=== PATIENT | male | born 1955 | race Asian ===

== ENCOUNTER 2024-10-30 12:37 | Inpatient (IN) | payer MEDICARE, SELFPAY ==
[2024-10-30] VITALS (12 sets, daily range): BP systolic 114–164; BP diastolic 80–120; BMI 27.4
[2024-10-30] MEDS: LOPRESSOR 5 MG IV (08:05)
[2024-10-30 08:16] LABS: Hematocrit 50.5 % (39.0-52.0); Hemoglobin 18.0 g/dL (13.0-18.0); Mean Corp Hgb Conc. 35.6 g/dL (33.0-37.0); Mean Corpuscular Volume 90.7 fL (80.0-94.0); Nucleated Red Blood Cells % 0 % (-); Platelet Count 219 10^3/uL (130-400); Red Cell Dist. Width 12.3 % (11.5-14.5)
[2024-10-30 08:32] LABS: ALT (SGPT) 51 U/L (0-50); AST (SGOT) 37 U/L (17-59); Albumin 4.5 g/dl (3.5-5.0); Alkaline Phosphatase 72 U/L (38-126); Blood Urea Nitrogen 19 mg/dl (9-20); Calcium 9.5 mg/dl (8.4-10.2); Carbon Dioxide 24 mmol/L (22-30); Chloride 108 mmol/L (98-107); Glucose 173 mg/dl (70-99); Magnesium 1.9 mg/dl (1.6-2.3); Potassium 4.0 mmol/L (3.5-5.1); Sodium 139 mmol/L (135-145); Total Protein 7.3 g/dl (6.3-8.2); eGFR > 60.00
[2024-10-30 08:43] LABS: Troponin I < 0.012 ng/ml
--- NOTE | 2024-10-30 10:30 | ED.GENMED ---
History of Present Illness
General
Chief Complaint: Cardiac Symptoms
Source: patient and spouse
Time Seen by Provider: 10/30/24 07:44
History of Present Illness
History of Present Illness:
Note:
CHIEF COMPLAINT(S)
Palpitations with a confirmed episode of atrial fibrillation as noted on personal monitoring.
HISTORY OF PRESENT ILLNESS
The patient is a male who presents with palpitations and a recent episode of atrial fibrillation noted by their smartwatch. Theyve had at least one instance where their watch alarm indicated an episode, and subsequent assessment by personal
monitoring correlates with this. The patient mentions having intermittent palpitations characterized by premature ventricular contractions (PVCs) occurring every fourth or fifth beat and occasionally premature atrial contractions (PACs). The patient
reports that their heart rate has increased from 97 to 116 beats per minute during the visit. Their recorded blood pressure today is elevated at 163/117 mmHg. The patient denies experiencing chest pain, weight loss, or thyroid-related symptoms like
changes in hair or skin condition. The patient states they have been slightly more short of breath over the last couple of weeks but can still walk. The patient previously had an echocardiogram which showed a slight deviation from normal, pending
further review of the full report.
PAST MEDICAL AND SURIGICAL HISTORY
The patient has a history of high blood pressure and atrial fibrillation. The patient has also had previous stress testing.
CHRONIC MEDICAL CONDITIONS SIGNIFICANTLY AFFECTING CARE
- Hypertension
- Atrial fibrillation
EXTERNAL RECORDS REVIEWED
An echocardiogram was done at another facility, with initial findings shared verbally with the patient. Further records are to be retrieved for comprehensive evaluation.
REVIEW OF SYSTEMS
- Cardiovascular: Palpitations, increased heart rate, no chest pain.
- Respiratory: Slight increase in shortness of breath over the last few weeks.
- General: No weight loss reported.
- Endocrine: No changes in hair or skin condition reported.
PHYSICAL EXAM
General: Alert, no acute distress.
Skin: Warm, dry.
Head: Normocephalic, atraumatic.
Neck: Supple, trachea midline.
Eye Ears, nose, mouth and throat: Oral mucosa moist.
Cardiovascular: Tachycardic with ectopy; frequent PVCs and occasional PACs; appears sinus; no edema.
Respiratory: Respirations are non-labored.
Gastrointestinal: Abdomen nondistended.
Back: Normal range of motion, Normal alignment.
Musculoskeletal: Normal ROM, normal strength.
Neurological: Alert and oriented to person, place, time, and situation, No focal neurological deficit observed.
Psychiatric: Cooperative, appropriate mood & affect.
PROBLEM LIST
Acute:
- Palpitations
- Hypertension
- Recent episode of atrial fibrillation
Chronic:
- Hypertension
- Atrial fibrillation
PLAN
- Monitor the heart rhythm and rate for a few hours.
- Perform laboratory investigations to check electrolyte levels and thyroid function.
- Administer beta-brenda to manage heart rate and blood pressure while awaiting test results.
- Obtain a chest X-ray.
- Trend blood pressure throughout monitoring to assess for decreases.
- Seek results and document from previous echocardiogram.
- Consider further management based on monitoring outcomes and lab results.
DIFFERENTIAL DIAGNOSIS
The Differential Diagnosis includes, in no particular order and is not limited to:
1. Paroxysmal atrial fibrillation
2. Valvular heart disease
3. Electrolyte imbalances
4. Thyroid dysfunction
5. Chronic obstructive pulmonary disease
6. Anxiety-induced palpitations
7. Myocardial ischemia
8. Heart failure
9. Pulmonary hypertension
10. Cardiomyopathy
CARE-UPDATE
10/30/24 - 08:56
The Holter monitor review from March 2024 indicates 5% PACs with 63 episodes of non-sustained SVT, the longest lasting 18 beats at a rate of 141 bpm. No atrial fibrillation or heart block detected.
CARE-UPDATE
10/30/24 - 08:57
Reviewed March 2024 echocardiogram: ejection fraction is 46%. Trace tricuspid regurgitation noted. Pulmonary artery pressure recorded at 24 mmHg, showing mild to moderate regurgitation.
EKG
My independent EKG interpretation is:
- Time of EKG: [Time Not Provided]
- Rhythm: Sinus tachycardia with frequent premature atrial contractions (PACs)
- Heart Rate: 115 bpm
- Newton: Normal
- Notable Intervals: [Not Provided]
- Abnormalities: No significant QRS complex changes detected
Disposition:
SUMMARY OF ENCOUNTER
The patient, a 69-year-old male, presented with palpitations and dyspnea, accompanied by tachycardia and frequent PVCs. A recent outpatient echocardiogram revealed an ejection fraction of 46% with mild to moderate mitral regurgitation. Upon
reassessment, the patient continued to be hypertensive but showed improvement following administration of metoprolol. However, PVCs persisted. Lab tests indicated volume overload with an elevated BNP of 1420 and negative troponin at 0.012. The
complete blood count (CBC) and basic metabolic panel (BMP) were normal. The patient was awake and alert, though his spouse noted he had not been himself recently.
DISPOSITION
Admission for further evaluation and management by cardiology.
ASSESSMENT
Tachycardia with frequent PVCs, volume overload, and possible exacerbation of heart failure given the reduced ejection fraction and mitral regurgitation.
EMERGENCY TREATMENTS ADMINISTERED
Metoprolol for hypertension and tachycardia.
MANAGEMENT OF THE PATIENTS CARE WAS DISCUSSED WITH
Cardiology, who will perform a bedside evaluation to provide further management advice.
REASSESSMENT
The patients hypertension improved after receiving metoprolol, but PVCs continued.
INDEPENDENT REVIEW OF LABS AND INTERPRETATION OF TESTS
- My independent review of BNP is elevated at 1420.
- My independent review of troponin is 0.012, indicating no acute myocardial infarction.
- My independent review of CBC is normal.
- My independent review of BMP is normal.
MEDICATION RECONCILIATION
- Metoprolol was administered to control hypertension and heart rate.
MEDICAL DECISION MAKING
- Number and Complexity of Problems Addressed: Chronic conditions affecting care include hypertension and atrial fibrillation.
Differential Diagnosis: Paroxysmal atrial fibrillation, valvular heart disease, electrolyte imbalances, thyroid dysfunction, chronic obstructive pulmonary disease, anxiety-induced palpitations, myocardial ischemia, heart failure, pulmonary
hypertension, cardiomyopathy.
- Data:
- Category 1: The patient�s recent echocardiogram was reviewed, showing an ejection fraction of 46% with mild to moderate mitral regurgitation.
- Category 2: My independent interpretation of the echocardiogram indicates reduced heart function with possible volume overload.
- Category 3: Management discussion with cardiology regarding the patients care and further evaluation at the bedside.
- Risk: Prescription medication management included metoprolol to control cardiovascular symptoms.
DIAGNOSIS
- Tachycardia with Premature Ventricular Contractions (PVCs) (ICD-10: R00.0)
- Hypertensive heart disease with heart failure (ICD-10: I11.0)
- Heart Failure with Reduced Ejection Fraction (ICD-10: I50.2)
Past History
Past History
ED Past Medical History: Hypercholesterolemia and Other (gout)
Social History
Tobacco: Non-smoker
Phy Exam
Physical Exam
Physical Exam:
.
Course
Orders/Labs/Results
Orders:
Orders
10/30/24 07:30
EKG [Electrocardiogram (*1)] Urgent
Reason for Study: Palpitations
EKG- Treatment ONCE
10/30/24 07:54
Metoprolol [Lopressor] 5 mg IV NOW STA
10/30/24 07:55
CR Chest - 2 Views Urgent
Comment:
Reason For Exam: sob, palpitations
10/30/24 08:05
Complete Blood Count/With Diff Urgent
Comprehensive Metabolic Panel Urgent
Magnesium Urgent
NT-proBNP Urgent
Comment: ADD ON
TSH Reflex To Free T4 Urgent
Troponin I Urgent
10/30/24 08:50
Metoprolol [Lopressor] 5 mg IV NOW STA
10/30/24 08:51
Add On- LAB Urgent
Tests Added?: BNP
10/30/24 11:11
Furosemide [Lasix] 20 mg IV NOW STA
10/30/24 12:13
Admit/Transfer Patient As Directed
Co-Sign Provider:
Level of Care: Inpatient admission
Assign to:: Telemetry
Physician / Group: hospitalist
Diagnosis: severe hypertention, arrhythmia
Reason for Telemetry: Arrhythmia
Date to Stop Telemetry: 11/02/24
Time to Stop Telemetry: 11:00
Reason for Hospitalization: severe hypertension, arrhythmia
Expected length of stay greater than two midnights?: Yes
ELOS- Estimated Length of Stay in days: 3
I certify the patient meets the requirements for IP care: Yes
PRN Pain Medication Management As Directed
May give lesser potent ordered pain med per pt: Yes
preference::
Protocol:: Medication orders for pain may be administered in a
manner that supports deferring to patient preference
when the pt is:
- Requesting an ordered lesser potent pain medication.
Least to most potent pain medications are defined
as: acetaminophen < NSAID < tramadol < opioids
(morphine, oxycodone, hydromorphone).
- Requesting a lesser dose of the same medication IF
ORDERED.
- Requesting a less intrusive route of administration
if both routes are prescribed by the provider (PO <
IV).
10/30/24 12:15
Code Status As Directed
Resuscitation Status: Full Code
10/30/24 14:07
Activity As Directed
Activity Level: With Assistance
Notify MD As Directed
Notify physician if: Bridge Admission orders placed.
Notify attending physician:
-- upon arrival to unit
OR
-- when patient is identified as an ED hold
Vital Signs As Directed
Frequency: Per unit guidelines
O2 Therapy [RESP] Routine
Titrate/Wean O2 to maintain O2 sat greater than (%): 92
DX Deep Vein Thrombosis Video Routine
10/30/24 18:00
Enoxaparin Sodium [Lovenox] 40 mg SC QPM
11/02/24 11:00
DC Protocol for Telemetry ONCE
Abnormal Lab Results
10/30/24
08:05
MCH 32.3 H pg
(27.0-31.0)
Chloride 108 H mmol/L
(98-107)
Glucose 173 H mg/dl
(70-99)
ALT 51 H U/L
(0-50)
10/30/24 08:05
10/30/24 08:05
Vital Signs
Initial and Last Documented VS:
Initial Vital Signs
Temp Pulse Resp BP Pulse Ox
99.0 F 117 18 164/120 97
10/30/24 07:31 10/30/24 07:31 10/30/24 07:31 10/30/24 07:31 10/30/24 07:31
Last Documented Vital Signs
Temp Pulse Resp BP Pulse Ox
97.5 F 56 16 156/87 95
10/30/24 14:10 10/30/24 14:10 10/30/24 14:10 10/30/24 14:10 10/30/24 14:10
*Pulse Oximetry
SaO2: 96
Oxygen Mode of Delivery: Room air
Patient hypoxic: no
*Critical Care Note
Total Time (30-74mins, 75-104mins- exclusive of procedures): Not Applicable
ED Attending Note
-
Portions of this chart may have been created with voice recognition software.� Occasional wrong word or��sound alike� substitutions may have occurred due to the inherent limitations of voice recognition software.
Discharge Plan
Departure
Patient Disposition: Admit
Date of Disposition: 10/30/24
Time of Disposition: 11:11
Admit to: Telemetry
Presentation/result/management discussed w/ accepting MD/DO: Hospitalist
Discharge Problem:
Acute dyspnea, Volume overload, Tachycardia, Frequent PVCs
Interventions
Interventions:
*Risk Screen - Suicide Last Done: 10/30/24 07:33
*General Assessment Last Done: 10/30/24 07:33
*Neglect/Abuse Screening Last Done: 10/30/24 07:33
*ED COVID-19 Vaccine History Last Done: 10/30/24 07:33
*Nursing Disposition Last Done: 10/30/24 13:55
Discharge Date and Time
Discharge Date/Time: 10/30/24 13:55
[2024-10-30] MEDS: LASIX 20 MG IV (12:08)
--- NOTE | 2024-10-30 12:09 | W.PN.UPDATE ---
Update Note
Progress Note Update
69 male history of gout hyperlipidemia presented with 3-week history of palpitations that has been progressively getting worse now associated with shortness of breath. States approximately 3 to 4 months ago while at the gym and had a syncopal
episode. Had 2D echocardiogram, states EF on the lower end, mitral regurgitation, Holter monitor completed without acute findings apart from PACs PVCs. Has an Apple watch that picked up potential atrial fibrillation this morning. EKG in the ED
demonstrated sinus tachycardia with PVCs. Troponin negative. BNP 1400. Chest x-ray with some pulmonary edema.
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
NAD
Scleral Anicteric
MMM
No JVD
Right lower lobe crackles worse on left
RR but tachycardic, S1/S2
Soft, NT, ND, BS+
Warm, Dry
AAOx3
Calm
?New onset heart failure with elevated BNP pulmonary edema on chest x-ray
IV diuretics
Obtain 2D echocardiogram from [facility] records
Monitor urinary output
Monitor on telemetry
Follow-up cardiology recommendations
Tachycardia
Check TSH
Monitor on telemetry
Cards recommendations
Beta-blockade
Because of the syncopal history would check CT PE study. Though low clinical suspicion has O2 sats ranging from 94 to 96% likely likely related to pulmonary edema rather than PE and no unilateral leg swelling
Gout
Allopurinol
Hyperlipidemia
Statin
--- NOTE | 2024-10-30 12:54 | HPS.HSE ---
Family Physician
-
Family Physician: Dr. Metz
Chief Complaint
-
Fatigue, shortness of breath and palpitations
History of Present Illness
A 69 y/o male with PMH of Hyperlipidemia, gout, BPH presented to ED with shortness of breath, fatigue and palpitations. Yesterday, while he was resting at home he had SOB, palpitations and checked his iwatch and had an alert for atrial fibrillation.
He did not have any chest pain, lightheaded, weakness or nausea. 2months ago while he was weight lifting at the gym he had an episode of syncope. It was so sudden he did not have a feeling of fainting. He gained his conciousness within seconds then
went home. About 3 weeks ago he started to feel palpitations, SOB more frequently and his smart watch would show HR 100-110 while resting. Usually he does not get tired easily but recently he started take naps to feel rested. He feels SOB from
walking upstairs or walking blocks which is very new for him. Even during SOB he usually can keep walking. He does not need to sit/rest. He denies chest pain, dizziness recent weight loss.
He followed up with PCP and Holter, Echo was done. He has a scheduled appt with [facility] supervisor at the end of November.
Medical History
Past Medical History
Past Medical History: Reports HTN and Hypercholesterolemia
Additional Past Medical History:
BPH
Gout
Past Surgical History: Reports None
Social History
Tobacco: Other (cigar once a week)
Alcohol: None
Drug: None
Personal:
Living: With Family
Family History
Family History: CAD
Allergies / Home Medications
Allergies reflects when Allergies were last updated in [employer].
Home Medications with original date entered in [employer]
Allergy/Medication List:
Allergies
Allergy/AdvReac Type Severity Reaction Status Date / Time
cephalexin monohydrate (From Allergy Rash Verified 10/30/24 07:32
Keflex)
Home Medications
aspirin 81 mg tablet,delayed release 81 mg PO DAILY 05/02/12
allopurinol 300 mg tablet 300 mg PO DAILY 10/30/24
atorvastatin 20 mg tablet (Lipitor) 20 mg PO DAILY 10/30/24
ezetimibe 10 mg tablet (Zetia) 10 mg PO DAILY 10/30/24
finasteride 5 mg tablet 5 mg PO DAILY 10/30/24
saw palm 160 mg-vit E 100 unit-selen 100 jrd-cjzs-bagzro-pygeum tablet (Prostate Health) 1 tab PO HS 10/30/24
saw palm 160 mg-vit E 100 unit-selen 100 pjt-likr-nklmjv-pygeum tablet (Prostate Health) 2 tab PO DAILY 10/30/24
therapeutic multivitamin 1 tab PO DAILY 10/30/24
Review of Systems
-
History Source: Patient
Constitutional: Reports Fatigue
EENT: Reports No Symptoms
Respiratory: Reports Trouble Breathing
Cardiac: Reports Palpitations
Abdomen/GI: Reports No Symptoms
: Reports Frequency
Musculoskeletal: Reports No Symptoms
Skin: Reports No Symptoms
Neurological: Reports No Symptoms
Endocrine: Reports No Symptoms
Hematologic/Lymphatic: Reports No Symptoms
Physical Exam
Vital Signs
Vital Signs
Temp Pulse Resp BP Pulse Ox
99.0 F 108 17 140/108 96
10/30/24 07:31 10/30/24 08:17 10/30/24 08:00 10/30/24 08:17 10/30/24 10:31
Physical Exam
General: Well Developed, Well Nourished, No Apparent Distress, Comfortable and Conversant
HEENT: NormoCephalic, Moist mucous membranes and Atraumatic
Respiratory: Crackles
Cardiac: S1/S2, Irregular Rhythm, Tachycardia and Murmur
Breast: Deferred by me
GI: Soft, Non Tender and Non Distended
Rectal: Deferred by Provider
Genito-urinary: Deferred by me
Musculoskeletal: No Clubbing, No Cyanosis and No Edema
Skin: Warm
Neuro: AO x 3, No Motor Deficits and No Sensory Deficits
Psych: Calm
Laboratory Results
-
10/30/24 08:05
10/30/24 08:05
Laboratory Results
Total Bilirubin 0.8 mg/dl (0.2-1.3) 10/30/24 08:05
AST 37 U/L (17-59) 10/30/24 08:05
ALT 51 U/L (0-50) H 10/30/24 08:05
Alkaline Phosphatase 72 U/L (38-126) 10/30/24 08:05
Troponin I < 0.012 ng/ml 10/30/24 08:05
Impression/Plan
-
IMPRESSION:
A 69 y/o male with PMH of Hyperlipidemia, gout, BPH presented to ED with shortness of breath, fatigue, palpitations with elevated HR on his iwatch. IT started 2 weeks ago with syncope at the gym. Last 3 weeks he has been feeling more fatigue, SOB,
palpitations and receiing afib alerts on his iwatch.
PLAN:
#Pulmonary congestion, elevated BNP, Possible new onset heart failure
- No history of HF
- Obtain recent Echo records from [facility]
- Move to IVU
- Consult Cardiology
- Monitor JOSIAH
- Watch daily weights
- Continue IV Lasix
- Follow cardiology recs
#Tachycardia
- ECG - Sinus tachycardia with frequent premature ventricular complexes
- Start Metoprolol 12.5 BID
- Check TSH
#Hypertension
- Continue Metoprolol
- IV lasix
#?? Pulmonary Emboli
- Pt with SOB, hx of syncope and tachycardia
- Check CT Pulmonary embolism
- Monitor Vitals and Oxygen
#?? Myocardial ischemia
- Pt with SOB, hx of syncope, tachycardia denies chest pain
- Check troponin- Normal
- ECG- no ST elevations
#Hyperlipidemia
-Continue Atorvastatin, Ezetimibe
#Gout
-Allopurinol
#BPH
-Continue Finasteride
Full Code
DVT prophylaxis: Levonox
--- NOTE | 2024-10-30 13:25 | CM ---
janitorial manager reviewed patient's chart and met with patient and spouse at bedside, patient is a Psychiatrist, is independent with adl's and ambulation, no dme patient drives, patient's home is multilevel. Plan is to home with spouse no needs when
stable.
PCP: Ernie?
Pharmacy: [facility].
[2024-10-30] MEDS: PROSCAR PO (14:28)
[2024-10-30] MEDS: ZETIA PO (14:28)
[2024-10-30] MEDS: ASPIR LOW (ENTERIC COATED) PO (14:28)
[2024-10-30] MEDS: LIPITOR PO (14:28)
[2024-10-30] MEDS: ZYLOPRIM PO (14:29)
--- NOTE | 2024-10-30 15:06 | PTCARENOTE ---
Pt was received from ED at 1410. Pt ambulated to the room. Denies SOB during this short walk. Sinus tach with PVCs noted on fly worker. Heart rate 110-115 at rest, 130s on ambulation. Care plan reviewed. at the bedside.
[2024-10-30] MEDS: TOPROL XL 25 MG PO (15:22)
--- NOTE | 2024-10-30 16:37 | CON.CAR ---
Addendum entered and electronically signed by Deirdre Simpson DO 10/31/24 15:31:
I saw and examined the patient.
The Exploration Geologist's note was reviewed and I agree with the note.
Comment: Seen and examined this morning with at bedside. Overall he feels better with less shortness of breath. No chest pain.
General: No acute distress, AAOX3
Neck: Negative JVD
Heart: Regular, positive S1/S2, 1/6 SM
Lungs: CTA b/l, negative wheezes/rales/rhonchi
Abd: Positive BS, NT/ND, neg rebound/rigidity/guarding
Ext: no edema
Neuro: nonfocal
Plan:
Acute heart failure with reduced ejection fraction, unclear etiology
- Echocardiogram reviewed on patient's portal with from echo 03/2024: EF 46%, grade 1 diastolic dysfunction and reduced strain with mild to moderate MR.
-Echocardiogram today EF 15-20% with strain reduced at -8.5%. Moderate mitral regurgitation and normal RV size and systolic function. Low-flow/low gradients across the aortic valve which looks at least carotic if not mildly stenotic.
- proBNP 1420. Troponin undetectable. TSH within normal limits
-CTA chest PE study with no pulmonary embolism. No thoracic aortic aneurysm. Mild calcifications of the thoracic aorta and coronary calcifications. No suspicious pulmonary nodules or bronchiectasis. No mediastinal/hilar or axillary
lymphadenopathy.
-Plan for right/left heart catheterization today
-If no significant coronary artery disease on cardiac catheterization we will pursue evaluation for nonischemic causes of cardiomyopathy. Will likely need a cardiac MRI.
- Will start to optimize goal-directed medical therapy for cardiomyopathy following cardiac catheterization: Carvedilol, Entresto, SGLT2 inhibitor
-Continue to monitor on telemetry
-Given patient's history of syncope several months ago, I have recommended LifeVest at time of discharge.
Frequent PACs/PVCs and sinus tachycardia
- No atrial fibrillation documented on telemetry
- Recent Holter monitor in October with no documented atrial fibrillation
- TSH within normal limits
History of prediabetes�repeat hemoglobin A1c
-Will initiate SGLT2 inhibitor this admission
Original Note:
Consultation
Consultation Request
Date/Time Consultation Requested: 10/30/24
Date/Time Consultation Performed: 10/30/24
Requesting Provider: Dr. Rice
Performing Provider: Dr. Simpson
Reason for Consultation: Shortness of breath and palpitation
Medical History
-
Chief Complaint: Shortness of breath and palpitation
History of Present Illness:
I had the pleasure to meet Dr. Alok Chaudhry along with his Hina for evaluation of at least 3 weeks of shortness of breath, palpitations and fatigue. 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
prediabetes, BPH and a remote history of gout. He has no history of hypertension, coronary artery disease, cardiomyopathy, cardiac arrhythmia, thromboembolic disease, or thyroid disease. He occasionally smokes cigars but does not smoke cigarettes.
Several months ago while working with a system integration engineer at the gym lifting weights he passed out. He did not seek immediate medical attention but did have testing through his primary care physician including a 48-hour Holter and a 2D echocardiogram.
Study results were reviewed on patient's portal: 40 aorta Holter October 30, 2024 showed sinus rhythm with PAC burden 4.9% and frequent brief runs of PAT without documented atrial fibrillation. PVC burden 4.4% with no runs of NSVT. No
significant bradycardia arrhythmia. His echocardiogram reported LV ejection fraction 46% with grade 1 diastolic dysfunction and abnormal strain, -10.3%. Normal RV size and systolic function with TAPSE 2 cm. Mild to moderate mitral regurgitation
with no reported MVP. Aortic sclerosis with no aortic regurgitation. No significant tricuspid regurgitation and estimated pulmonary artery pressure is normal at 24 mmHg. There was no reported pericardial effusion. He has not returned to regular
exercise but is active with walking. He denies any further syncopal events. In the last 3 weeks he has noted a gradual worsening of increasing fatigue, palpitations and shortness of breath. On presentation to the ED he states his Apple Watch has
had A-fib alerts. He denies chest pain or pressure. He denies lower extremity edema. Although he was not immediately aware, he now admits that his abdomen may have felt a little distended. Family history was reviewed: Father has a history of
coronary artery disease and bypass surgery. Mom is relatively healthy. He has a brother with a history of stroke in his 50s but no documented atrial fibrillation. His children are healthy.
.
In the ER he was found to be hypertensive with sinus rhythm/sinus tachycardia and frequent PVCs. Cardiac troponin undetectable. TSH is normal. BUN/creatinine normal. Hemoglobin normal. proBNP 1420. Chest x-ray clear. There is an order for CTA
of the chest by primary not yet completed. Twelve-lead EKG sinus tachycardia with frequent PVCs and nonspecific ST-T wave abnormality. He received a dose of IV Lasix in the emergency room as well as IV Lopressor with improved shortness of breath.
.
He has an upcoming cardiology consult appointment in our office in November.
Past medical history:
Hyperlipidemia, prediabetes, gout, BPH
Past Medical History
Past Medical History: Other (See HPI)
Past Surgical History: None
Social History
Tobacco: Other (No cigarette use. Occasional cigars)
Alcohol: None
Drug: None
Personal:
Living: With Family
Employment: Employed (Practicing psychiatrist)
Family History
Family History: CAD (Father with a history of coronary artery disease and bypass) and Other (Brother with a history of stroke. No family history of atrial fibrillation)
Allergies / Home Medications
Allergy/AdvReac Type Severity Reaction Status Date / Time
cephalexin monohydrate (From Allergy Rash Verified 10/30/24 07:32
Keflex)
�Medication �Instructions �Recorded �Confirmed �Type
aspirin 81 mg tablet,delayed 81 mg PO DAILY 05/02/12 10/30/24 History
release
allopurinol 300 mg tablet 300 mg PO DAILY 10/30/24 10/30/24 History
atorvastatin 20 mg tablet (Lipitor) 20 mg PO DAILY 10/30/24 10/30/24 History
ezetimibe 10 mg tablet (Zetia) 10 mg PO DAILY 10/30/24 10/30/24 History
finasteride 5 mg tablet 5 mg PO DAILY 10/30/24 10/30/24 History
saw palm 160 mg-vit E 100 1 tab PO HS 10/30/24 10/30/24 History
unit-selen 100
ptc-bznk-wjccuo-pygeum tablet
(Prostate Health)
saw palm 160 mg-vit E 100 2 tab PO DAILY 10/30/24 10/30/24 History
unit-selen 100
myz-szik-bhkvhk-pygeum tablet
(Prostate Health)
therapeutic multivitamin 1 tab PO DAILY 10/30/24 10/30/24 History
Review of Systems
-
History Source: Patient
All other systems: Negative unless noted
Constitutional: Fatigue
EENT: No Symptoms
Respiratory: Trouble Breathing
Cardiac: Palpitations and Syncope
Abdomen/GI: No Symptoms
: No Symptoms
Musculoskeletal: No Symptoms
Skin: No Symptoms
Neurological: No Symptoms
Endocrine: No Symptoms
Hematologic/Lymphatic: No Symptoms
Physical Exam
Vital Signs
Temp Pulse Resp BP Pulse Ox
98.1 F 66 18 131/86 96
10/30/24 15:45 10/30/24 15:45 10/30/24 15:45 10/30/24 15:45 10/30/24 15:45
Lab Results
10/30/24 08:05
10/30/24 08:05
Troponin I < 0.012 ng/ml 10/30/24 08:05
Ypy-B-Qcnhprkzxvk Pept 1420 pg/ml 10/30/24 08:05
Physical Exam
General: Well Developed, Well Nourished, No Apparent Distress and Comfortable
HEENT: Normocephalic, Anicteric and Moist Mucous Membranes
Respiratory: Clear and Non Labored Respirations; Negative Wheezes, Crackles or Rhonchi
Cardiac: Other (Irregular with ectopy on telemetry. Tachycardic. Positive S1-S2. No murmurs auscultated)
Musculoskeletal: No Edema (Trace pedal edema)
Neuro: AO x 3 and Nonfocal/Grossly Intact
Psych: Calm
Impression / Plan
-
Initial consult: Dr. Simpson
Impression:
Shortness of breath/elevated proBNP with history of mildly reduced LV systolic function on recent outside hospital echocardiogram and diastolic dysfunction consistent with heart failure with reduced ejection fraction
Frequent PACs and PVCs
Sinus tachycardia
Hypertension, new diagnosis
Hyperlipidemia. Lipid profile 01/06/2024: Total cholesterol 162, HDL 58, triglycerides 167, LDL 77
History of syncope
Prediabetes with hemoglobin A1c 6.2% January 21, 2024
History of gout
Plan:
Acute heart failure with mildly reduced LV systolic function
- Echocardiogram reviewed on patient's portal with EF 46%, grade 1 diastolic dysfunction and reduced strain with mild to moderate MR.
- proBNP 1420
-Will repeat echocardiogram with strain tomorrow.
- Pending echo findings, he will need further ischemic evaluation likely as an outpatient with a Lexiscan PET/CT stress test. Troponin undetectable.
- Continue IV Lasix with likely transition to oral Lasix tomorrow
- Start metoprolol succinate 25 mg daily and monitor blood pressure/heart rate and telemetry trend
- Pending confirmation of ejection fraction; will start goal-directed medical therapy
-CTA ordered�pending.
Frequent PACs/PVCs and sinus tachycardia
- No atrial fibrillation documented on telemetry
- Recent Holter monitor in October with no documented atrial fibrillation
- Start beta-brenda
- TSH within normal limits
Hypertension, new diagnosis on admission
- Monitor blood pressure with new Toprol XL and Lasix
- Pending echo findings consider addition of ARB or Entresto
- Goal normotension
History of prediabetes�repeat hemoglobin A1c
- Most likely will start Jardiance given heart failure presentation
Data Reviewed
-
EKG: Tracing Personally Visualized and interpreted
Radiology: Report Reviewed by me
Medical Tests (Nuc Med, Echo etc): Report Reviewed by me
Labs: Labs Reviewed by me
Old Records: Reviewed
[2024-10-30] MEDS: LOVENOX 40 MG SC (16:53)
--- NOTE | 2024-10-30 23:33 | PTCARENOTE ---
received patient from . AAOx3. independent. states feeling much better this evening. denies shortness of breath at this time. mild palpitations. HR 90s-100s with frequent PVCs and PACs. bp 135/92. denies any pain. reviewed plan of care with
patient and verbalized understanding. urinal provided for I/Os. call upton within reach. makes needs known.
[2024-10-31] VITALS (19 sets, daily range): BP systolic 102–129; BP diastolic 62–106; BMI 27.0
[2024-10-31 04:35] LABS: Hematocrit 51.2 % (39.0-52.0); Hemoglobin 18.0 g/dL (13.0-18.0); Mean Corp Hgb Conc. 35.2 g/dL (33.0-37.0); Mean Corpuscular Volume 91.8 fL (80.0-94.0); Platelet Count 237 10^3/uL (130-400); Red Cell Dist. Width 12.5 % (11.5-14.5)
[2024-10-31 04:56] LABS: Blood Urea Nitrogen 22 mg/dl (9-20); Calcium 9.6 mg/dl (8.4-10.2); Carbon Dioxide 24 mmol/L (22-30); Chloride 107 mmol/L (98-107); Estimated Creatinine Clearance 50 ml/min; Glucose 109 mg/dl (70-99); Magnesium 2.2 mg/dl (1.6-2.3); Potassium 4.2 mmol/L (3.5-5.1); Sodium 140 mmol/L (135-145); eGFR > 60.00
[2024-10-31] MEDS: ASPIR LOW (ENTERIC COATED) 81 MG PO (07:48)
[2024-10-31] MEDS: ZETIA 10 MG PO (07:48)
[2024-10-31] MEDS: ZYLOPRIM 300 MG PO (07:48)
[2024-10-31] MEDS: PROSCAR 5 MG PO (07:49)
[2024-10-31] MEDS: LIPITOR 20 MG PO (07:49)
[2024-10-31] MEDS: TOPROL XL 25 MG PO ×2 (07:49→13:13)
[2024-10-31] MEDS: LASIX 20 MG IV (07:50)
[2024-10-31 09:56] LABS: Glycohemoglobin (HgbA1c) 5.7 % (4.0-5.6)
--- NOTE | 2024-10-31 10:07 | W.PN.HOSP.TC ---
Today's Communication/Plan
-
Increase Metoprolol Succinate to 50mg PO QD
Continue IV lasix today
Follow cards recs
Assessment / Plan
Assessment / Plan
Assessment
A 69 y/o male with PMH of Hyperlipidemia, gout, BPH presented to ED with shortness of breath, fatigue, palpitations with elevated HR on his iwatch. IT started 2 weeks ago with syncope at the gym. Last 3 weeks he has been feeling more fatigue, SOB,
palpitations and receiing afib alerts on his smart watch.
Plan
#Pulmonary congestion, elevated BNP, Possible new onset heart failure
- No history of HF
- Obtain recent Echo records from [place]--> Echocardiogram reviewed on patient's portal with EF 46%, grade 1 diastolic dysfunction and reduced strain with mild to moderate MR.
- Move to IVU
- Consult Cardiology
- Monitor JOSIAH
- Watch daily weights
- Continue IV Lasix 20mg today he still has crackles on his lungs-- likely transition to oral Lasix tomorrow
Follow cardiology recs
-- repeat echocardiogram with strain tomorrow
-- need further ischemic evaluation likely as an outpatient with a Lexiscan PET/CT stress test
-- will start goal-directed medical therapy
#Tachycardia
- ECG - Sinus tachycardia with frequent premature ventricular complexes
- Recent Holter monitor in October with no documented atrial fibrillation
- Add another dose of Metoprolol Succinate 25mg today-- Tomorrow continue with 50mg BID
- Check TSH-- normal
#Hypertension
- Continue Metoprolol
- IV lasix
#Prediabetes
- Hemoglobin A1C 5.7%
#?? Pulmonary Emboli
- Pt with SOB, hx of syncope and tachycardia
- Obtain Chest CTA--> No evidence of pulmonary embolism.
- Monitor Vitals and Oxygen
#?? Myocardial ischemia
- Pt with SOB, hx of syncope, tachycardia denies chest pain
- Check troponin- Normal
- ECG- no ST elevations
#Hyperlipidemia
-Continue Atorvastatin, Ezetimibe
#Gout
-Allopurinol
#BPH
-Continue Finasteride
Full Code
DVT prophylaxis: Levonox
Anticipated Discharge: 24 - 48 hours
Subjective/Interval History
-
Date of Service: October 31, 2024
He has a SOB with exercising but it is improving. Denies SOB while resting. Overnight he had some palpitations without SOB. Denies Chest pain. Overall he is feeling better.
Objective Data
-
Labs:
Laboratory Results
10/31/24
03:45
WBC 6.0
Hgb 18.0
Hct 51.2
Plt Count 237
Sodium 140
Potassium 4.2
Chloride 107
Carbon Dioxide 24
BUN 22 H
Creatinine 1.1
Glucose 109 H
Calcium 9.6
Vital Signs:
Vital Signs
Temp Pulse Resp BP Pulse Ox
97.4 F 97 15 129/106 99
10/31/24 07:21 10/31/24 07:49 10/31/24 07:21 10/31/24 07:49 10/31/24 07:21
I&O
10/30/24 10/31/24 11/01/24
06:59 06:59 06:59
Intake Total 480 / 480
Balance 480 / 480
Review of Systems
-
History Source: Patient
Constitutional: Reports No Symptoms
EENT: Reports No Symptoms Reported
Respiratory: Reports Trouble Breathing
Cardiac: Reports Palpitations
Abdomen/GI: Reports No Symptoms
Breast: Reports No Symptoms
Genitourinary: Reports No Symptoms
Musculoskeletal: Reports No Symptoms
Skin: Reports No Symptoms
Neuro: Reports No Symptoms
Endocrine: Reports No Symptoms
Hematologic / Lymphatic: Reports No Symptoms
Physical Exam
-
General: Well Developed, Well Nourished, No Apparent Distress, Comfortable and Conversant
HEENT: Normocephalic, Atraumatic and Moist Mucous Membranes
Respiratory: Crackles
Cardiac: Regular Rhythm, S1/S2 and Murmur
Breast: Deferred by me
GI: Soft, Nontender, Nondistended and Normal Bowel Sounds
Rectal: Deferred by Provider
Genito-urinary: Deferred by me
Musculoskeletal: No Clubbing, No Cyanosis, No Edema and Normal Gait & Station
Skin: Warm and Dry
Neuro: AO x 3
Hematologic / Lymphatic: No Lymphadenopathy
Psych: Calm
--- NOTE | 2024-10-31 11:51 | W.PN.CARDCBS ---
Today's Communication / Plan
-
[facility] today
Impression / Plan
-
Initial consult: Dr. Simpson
Impression:
Shortness of breath/elevated proBNP with history of mildly reduced LV systolic function on recent outside hospital echocardiogram and diastolic dysfunction consistent with heart failure with reduced ejection fraction
Frequent PACs and PVCs
Sinus tachycardia
Hypertension, new diagnosis
Hyperlipidemia. Lipid profile 01/06/2024: Total cholesterol 162, HDL 58, triglycerides 167, LDL 77
History of syncope
Prediabetes with hemoglobin A1c 6.2% January 21, 2024
History of gout
Plan:
Acute heart failure w/ reduced LV systolic function
- Echocardiogram reviewed on patient's portal with EF 46%, grade 1 diastolic dysfunction and reduced strain with mild to moderate MR.
- proBNP 1420
-Echocardiogram with strain 10/31/2024: EF 15-20%
- will proceed with ischemic evaluation [facility] today. Troponin undetectable.
- Continue IV Lasix
- Started metoprolol succinate 25 mg daily 10/30/2024 and monitor blood pressure/heart rate and telemetry trend
-start GDMT
-CTA chest no PE
Frequent PACs/PVCs and sinus tachycardia
-Telemetry personally reviewed: Normal sinus rhythm, PVCs, PACs
- Recent Holter monitor in October with no documented atrial fibrillation, in process of obtaining report from [facility] cardiology
- Started beta-brenda
- TSH 1.28 within normal limits
Hypertension, new diagnosis on admission
- Monitor blood pressure with new Toprol XL and Lasix
- Pending echo findings consider addition of ARB or Entresto
- Goal normotension
History of prediabetes�hemoglobin A1c 5.7
- will start Jardiance given heart failure presentation
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
Subjective
Date of Service: October 31, 2024
Objective
Labs:
10/31/24 03:45
10/31/24 03:45
Labs
Hgb 18.0 g/dL (13.0-18.0) 10/31/24 03:45
Hct 51.2 % (39.0-52.0) 10/31/24 03:45
Plt Count 237 10^3/uL (130-400) 10/31/24 03:45
Sodium 140 mmol/L (135-145) 10/31/24 03:45
Potassium 4.2 mmol/L (3.5-5.1) 10/31/24 03:45
BUN 22 mg/dl (9-20) H 10/31/24 03:45
Creatinine 1.1 mg/dL (0.7-1.3) 10/31/24 03:45
Glucose 109 mg/dl (70-99) H 10/31/24 03:45
Troponins
10/30/24
08:05
Troponin I < 0.012
Vital Signs and I&O:
Vital Signs
Temp Pulse Resp BP Pulse Ox
97.6 F 57 14 129/106 96
10/31/24 11:05 10/31/24 11:05 10/31/24 11:05 10/31/24 07:49 10/31/24 11:05
Vital Signs
Temp Pulse Resp BP Pulse Ox
97.6 F 57 14 129/106 96
10/31/24 11:05 10/31/24 11:05 10/31/24 11:05 10/31/24 07:49 10/31/24 11:05
Intake & Output
10/29/24 10/30/24 10/31/24 11/01/24
06:59 06:59 06:59 06:59
Intake Total 480 / 480 240 / 240
Output Total 750 / 750
Balance 480 / 480 -510 / -510
[2024-10-31 15:23] LABS: ACT-LR - POC 318 Seconds (116-155)
--- NOTE | 2024-10-31 15:52 | ITS.CL.CATH ---
Senior Unix Administrator - Catheterization
Cardiac Catheterization
Procedure Report:
RIGHT AND LEFT HEART STUDY
Date of Procedure: October 31, 2024
Referring: Dr. Deirdre Simpson
PROCEDURES:
1. Right heart catheterization
2. Left heart catheterization with coronary and single-plane left ventriculography
3. Hemodynamic assessment of the distal RCA using a [place] Verrata wire with the iFR serially measuring above the ischemic threshold
INDICATION: This is a a 69-year-old gentleman with known mild LV dysfunction who was admitted to [facility] following the subacute onset of palpitations, fatigue, and increased shortness of breath over the preceding 3 weeks. He did have an
echocardiogram about 8 months ago notable for mildly reduced LVEF. The echocardiogram was repeated with an estimated ejection fraction of 15 to 20%. He is now referred for coronary angiography.
ACCESS: Right radial artery, 6 [place] sheath and right brachial vein, 5 [place] sheath
HEMODYNAMICS : mmHg
RA (m) : 5
RV (s/d) : 31/5, 9
PA (s/d, m) : 32/19, 25
PCWP (m) : 22
AO (s/d, m) : 127/87, 103
LV (s/d) : 131/18
LVEDP : 35
Estimated Ines Cardiac Output: 3.7 L / min and Cardiac Index: 2.1 L/ min / m-2
Systemic vascular resistance: 26.5 Wood units or 2119 [id number](-5)
Pulmonary vascular resistance: 0.8 Wood units or 64 brarb-fik-pc(-5)
AORTIC VALVE:
Mean gradient: 18 mmHg on pullback
CORONARY FINDINGS :
Dominance: Right
LEFT MAIN: The origin of the left main was cannulated with a 6 [place] AL 2 diagnostic catheter. There was mild ostial narrowing in the left main but no pressure dampening on engagement of the diagnostic catheter.
LEFT ANTERIOR DESCENDING: The LAD arises normally from the left main and runs in the anterior interventricular groove. The LAD has only minor irregularities over its course with no focal obstructive stenosis.
CIRCUMFLEX: The circumflex is a large-caliber nondominant vessel giving rise to a large OM1. The mid circumflex has a 50% stenosis and the vessel terminates in a small to medium caliber OM 2
RIGHT CORONARY ARTERY: There is mild ostial narrowing with reflux around the catheter tip but no pressure dampening. The distal right coronary artery has an eccentric 65% stenosis proximal to the crux and the vessel. The PDA and posterolateral
branches are both widely patent. The IFR serially measured above the ischemic threshold at 1.0, 0.99, 1.0, and 0.99. The Verrata wire was withdrawn to the guide catheter tip and read normalized then readvanced beyond the distal RCA stenosis where
the IFR again measured above the ischemic threshold at 0.97, 0.96, 0.99, and 1.0. There was no significant baseline drift on pullback to the guide catheter. PCI was deferred.
VENTRICULOGRAPHY: Left ventriculography is performed in an TRINH projection. The digital single-plane left ventricular ejection fraction is estimated at 20%. The ventricle is dilated and globally hypokinetic with severe hypokinesis of the inferior
apical wall
SEDATION: 65 minutes of procedural sedation was utilized. An independent medical surgery nurse was present to assist with and help manage the patient's level of consciousness and physiologic status
RADIATION SUMMARY: Fluoro Time (min): 16.4, Dose (mGy): 601, DAP (Gy.cm2) : 41.9
CONCLUSIONS
1. Severe LV dysfunction out of proportion to the extent of coronary artery disease
2. Coronary artery disease involving the distal RCA with 65% stenosis. The iFR measured above the ischemic threshold
RECOMMENDATIONS
1. Continued medical management for dilated cardiomyopathy. Will start Entresto and titrate. Blood pressures are quite high. Continue oral beta-brenda. May consider aldosterone and/or SGLT2
2. Continue aspirin given coronary artery disease noted in the distal RCA
3. Check fasting lipid profile. Would treat to goal LDL cholesterol clearly less than 70 mg/dL and preferably closer to 55 mg/dL
Copy to: Dr. Deirdre Simpson
[2024-10-31] MEDS: LOVENOX SC (19:05)
[2024-10-31] MEDS: ENTRESTO 24 MG/26 MG 1 TAB PO (19:48)
[2024-10-31] MEDS: COREG 3.125 MG PO (19:48)
--- NOTE | 2024-10-31 22:54 | PTCARENOTE ---
Patient received at change of shift resting in the bed. Right radial TR band intact. Right brachial puncture with gauze and tegaderm with gauze and tegaderm C/D/I. Sinus rhythm to sinus tach on telemetry with PACs, PVCs, and periods of bigeminy. The
patient denies chest pain. Endorsed feeling lightheaded briefly while ambulating which quickly passed. At approximately 1956 the patient's telemetry alarmed for high HR, an episode of what appears to be [place] was noted. The patient denied feeling
palpitations or any chest pain/discomfort. Oxygen saturation 95-96% on room air. Blood pressure 120/90. CT surgery HARRY Ag notified. 2L NC was applied. No other episodes have been noted since. The patient continues to deny pain/discomfort
and/or palpitations. The TR band was weaned off per protocol and removed at 2200 without incident, gauze and tegaderm applied. Activity restrictions reviewed. Call upton within reach. Plan of care discussed. Care ongoing.
[2024-11-01] VITALS (7 sets, daily range): BP systolic 92–113; BP diastolic 75–85; BMI 27.2
[2024-11-01 04:11] LABS: Hematocrit 49.4 % (39.0-52.0); Hemoglobin 17.3 g/dL (13.0-18.0); Mean Corp Hgb Conc. 35.0 g/dL (33.0-37.0); Mean Corpuscular Volume 91.7 fL (80.0-94.0); Platelet Count 230 10^3/uL (130-400); Red Cell Dist. Width 12.7 % (11.5-14.5)
[2024-11-01 04:37] LABS: Blood Urea Nitrogen 20 mg/dl (9-20); Calcium 9.1 mg/dl (8.4-10.2); Carbon Dioxide 24 mmol/L (22-30); Chloride 107 mmol/L (98-107); Estimated Creatinine Clearance 55 ml/min; Glucose 118 mg/dl (70-99); HDL Cholesterol 55 mg/dl; LDL Cholesterol, Calculated 68 mg/dl; Potassium 4.1 mmol/L (3.5-5.1); Sodium 139 mmol/L (135-145); Very Low Density Lipoprotein 33 mg/dl (0-30); eGFR > 60.00
--- NOTE | 2024-11-01 04:47 | PTCARENOTE ---
Patient with two unmeasured voids this shift. Discussed with patient using urinal so that staff can measure his urine output. Patient verbalized understanding to use urinal so that we can maintain accurate I&Os. Care ongoing.
--- NOTE | 2024-11-01 08:10 | W.PN.HOSP.TC ---
Today's Communication/Plan
-
Start Entresto and titrate
Start Dapagliflozin
Continue IV lasix
Monitor BP, HR
Assessment / Plan
Assessment / Plan
Assessment
A 69 y/o male with PMH of Hyperlipidemia, gout, BPH presented to ED with shortness of breath, fatigue, palpitations with elevated HR on his iwatch. IT started 2 weeks ago with syncope at the gym. Last 3 weeks he has been feeling more fatigue, SOB,
palpitations and receiing afib alerts on his smart watch.
Plan
#Pulmonary congestion, elevated BNP, Possible new onset heart failure
- No history of HF
- Move to IVU
- Consult Cardiology
- Monitor JOSIAH
- Watch daily weights
- Continue IV Lasix 20mg- likely transition to oral Lasix tomorrow
Obtain Echo:
-Severely reduced left ventricular systolic function with left ventricular ejection fraction 15-20%
-Trileaflet calcified aortic valve without aortic regurgitation. Perhaps mildly stenotic complicated by low gradient/low flow
-Mitral sclerosis with moderate mitral regurgitation
-Mild tricuspid regurgitation; estimated pulmonary artery systolic pressure 25 mmHg assuming a right atrial pressure of 5 mmHg
Compared to outside study echo report 03/24/24, LV ejection fraction was previously estimated 46% with grade 1 diastolic dysfunction and abnormal strain, negative, aortic sclerosis with no AI and no significant tricuspid regurgitation with estimated
pulmonary artery pressure 24 mmHg.
He had cardiac catheterization yesterday for ischemic evaluation
1.Severe LV dysfunction out of proportion to the extent of coronary artery disease
2. Coronary artery disease involving the distal RCA with 65% stenosis. The iFR measured above the ischemic threshold
Follow cardiology recs
-- repeat echocardiogram with strain tomorrow
-- need further ischemic evaluation likely as an outpatient with a Lexiscan PET/CT stress test
-- will start goal-directed medical therapy
-- Start Entresto and titrate--Sacubitril 24mg/Valsartan 26mg BID. Double the dose as tolerated in 1 to 2-week intervals to the target maintenance dose of sacubitril 97 mg/valsartan 103 mg BID
-- Start Carvedilol and titrate
-- May consider eventual Aldactone if blood pressure tolerates
-- Try to get coverage for OP LifeVest
-- Repeat echo after at least 3 months of GDMT
Continue Aspirin 81mg QD for 65% stenotic distal RCA
Atorvastatin uptitrated to 40 mg daily and continues on Zetia
LDL 68
#Tachycardia
- ECG - Sinus tachycardia with frequent premature ventricular complexes
- Recent Holter monitor in October with no documented atrial fibrillation
- Uptitrate carvedilol to 6.25 mg BID
- Check TSH- 1.28
#Hypertension
-Continue Entresto, Carvedilol for HFrEF, discontinue metoprolol
-Continue IV lasix
-monitor goal normotension
#Prediabetes
- Hemoglobin A1C 5.7%
- Start Dapagliflozin 10mg PO QD for HF presentation
#?? Pulmonary Emboli
- Pt with SOB, hx of syncope and tachycardia
- Obtain Chest CTA--> No evidence of pulmonary embolism.
- Monitor Vitals and Oxygen
#?? Myocardial ischemia
- Pt with SOB, hx of syncope, tachycardia denies chest pain
- Check troponin- Normal
- ECG- no ST elevations
#Hyperlipidemia
-Continue Atorvastatin, Ezetimibe
#Gout
-Allopurinol
#BPH
-Continue Finasteride
Full Code
DVT prophylaxis: Levonox
Anticipated Discharge: 24 - 48 hours
Subjective/Interval History
-
Date of Service: November 01, 2024
He had heart cath yesterday. He has palpitations but less than usual. He was able to walk without having SOB. He denies chest pain.
Objective Data
-
Labs:
Laboratory Results
11/01/24
03:35
WBC 7.8
Hgb 17.3
Hct 49.4
Plt Count 230
Sodium 139
Potassium 4.1
Chloride 107
Carbon Dioxide 24
BUN 20
Creatinine 1.0
Glucose 118 H
Calcium 9.1
Vital Signs:
Vital Signs
Temp Pulse Resp BP Pulse Ox
97.7 F 91 18 113/85 98
11/01/24 07:18 11/01/24 07:17 11/01/24 07:18 11/01/24 07:17 11/01/24 07:18
I&O
10/31/24 11/01/24 11/02/24
06:59 06:59 06:59
Intake Total 480 / 480 540 / 540
Output Total 750 / 750 175 / 175
Balance 480 / 480 -210 / -210 -175 / -175
Review of Systems
-
History Source: Patient
Constitutional: Reports No Symptoms
EENT: Reports No Symptoms Reported
Respiratory: Reports No Symptoms
Cardiac: Reports Palpitations
Abdomen/GI: Reports No Symptoms
Breast: Reports No Symptoms
Genitourinary: Reports No Symptoms
Musculoskeletal: Reports No Symptoms
Skin: Reports No Symptoms
Neuro: Reports No Symptoms
Endocrine: Reports No Symptoms
Hematologic / Lymphatic: Reports No Symptoms
Physical Exam
-
General: Well Developed, Well Nourished, No Apparent Distress, Comfortable and Conversant
HEENT: Normocephalic, Atraumatic and Moist Mucous Membranes
Respiratory: Clear to Auscultation
Cardiac: Regular Rhythm, S1/S2 and Murmur
Breast: Deferred by me
GI: Soft, Nontender, Nondistended and Normal Bowel Sounds
Rectal: Deferred by Provider
Genito-urinary: Deferred by me
Musculoskeletal: No Clubbing, No Cyanosis, No Edema and Normal Gait & Station
Skin: Warm and Dry
Neuro: AO x 3
Hematologic / Lymphatic: No Lymphadenopathy
Psych: Calm
[2024-11-01] MEDS: FARXIGA 10 MG PO (08:20)
[2024-11-01] MEDS: ENTRESTO 24 MG/26 MG 1 TAB PO ×2 (08:20→19:20)
[2024-11-01] MEDS: ZETIA 10 MG PO (08:21)
[2024-11-01] MEDS: PROSCAR 5 MG PO (08:21)
[2024-11-01] MEDS: ASPIR LOW (ENTERIC COATED) 81 MG PO (08:21)
[2024-11-01] MEDS: LIPITOR 40 MG PO (08:22)
[2024-11-01] MEDS: COREG 3.125 MG PO (08:22)
[2024-11-01] MEDS: ZYLOPRIM 300 MG PO (08:22)
[2024-11-01] MEDS: LASIX 20 MG IV (08:23)
--- NOTE | 2024-11-01 10:14 | W.PN.CARDCBS ---
Addendum entered and electronically signed by Black Stahl MD 11/01/24 11:28:
I saw and examined the patient.
The LEAD SECURITY OFFICER or PA's note was reviewed and I agree with the note.
Comment: General: Well developed, well nourished in NAD.
Neck: Supple, no JVD, HJR, carotids +2 B/L, no bruits bilaterally.
Heart: Non displaced PMI, RRR, no murmurs, No S3, S4, no rubs.
Lungs: Clear to auscultation bilaterally, no wheeze, rhonchi, rubs bilaterally,
normal expiratory phase.
Extremities: No clubbing, cyanosis or edema bilaterally.
Neuro: Grossly nonfocal, awake, alert and oriented x3.
He feels well. Will continue IV Lasix with wedge pressure of 22 on 10/31. Continue Entresto and increase Coreg. Continue Farxiga. May consider eventual Aldactone if blood pressure tolerates. Try to get coverage for LifeVest although his syncopal
event was 7 months ago. Ejection fraction at that time was 46% and likely was vasovagal.
Original Note:
Today's Communication / Plan
-
-uptitrate Coreg
-arranging for outpt Lifevest
Impression / Plan
-
Initial consult: Dr. Simpson
Impression:
Shortness of breath/elevated proBNP with history of mildly reduced LV systolic function on recent outside hospital echocardiogram and diastolic dysfunction consistent with heart failure with reduced ejection fraction
Frequent PACs and PVCs
Sinus tachycardia
Hypertension, new diagnosis
Hyperlipidemia. Lipid profile 01/06/2024: Total cholesterol 162, HDL 58, triglycerides 167, LDL 77
History of syncope
Prediabetes with hemoglobin A1c 6.2% January 21, 2024
History of gout
Previous cardiovascular testing:
Echocardiogram with strain 10/31/2024: EF 15-20%
Left heart cath 10/31/2024: LAD minor irregularities. Circumflex 50% mid stenosis. RCA distal 65% eccentric stenosis, PDA and posterior lateral branches widely patent, IFR serially measures above the ischemic threshold at 1.0, 0.99, 1.0, and 0.99.
RA 5, PA 32/19, PCWP 22, CO/CI 3.7/2.1
Plan:
Acute heart failure w/ reduced LV systolic function
- previous Echocardiogram reviewed on patient's portal ([facility]) with EF 46%, grade 1 diastolic dysfunction and reduced strain with mild to moderate MR.
- proBNP 1420
-Echocardiogram with strain 10/31/2024: EF 15-20%
- Left heart cath 10/31/2024 with nonobstructive CAD and elevated left-sided filling pressures
- continues low dose IV Lasix 20 mg daily. Has not had significant weight loss. Does not appear volume overloaded on exam
-Atorvastatin uptitrated to 40 mg daily and continues on Zetia
-cont ASA 81 mg daily given nonobstructive dz in distal RCA
- Started metoprolol succinate 25 mg daily 10/30/2024 then transitioned to carvedilol
-started GDMT for severe LV dysfunction: Has been started on Entresto 24/26 mg bid, carvedilol 3.125 mg bid, Farxiga 10 mg daily
-Blood pressures 90s- 110s / 70s-80s on this regimen
-eventually add spironolactone if BP tolerates
-CTA chest no PE
-LifeVest has been advised given history of syncopal episode earlier this year and now with new nonischemic cardiomyopathy, in process of arranging
- Repeat echo after at least 3 months of GDMT
Frequent PACs/PVCs and sinus tachycardia
-Telemetry personally reviewed: Normal sinus rhythm/ST HRs 90s-110s, occ PVCs, PACs, ventricular bigeminy, 9 sec run SVT
-Uptitrate carvedilol to 6.25 mg twice daily- i ordered
- Recent Holter monitor in October with no documented atrial fibrillation, in process of obtaining report from [facility] cardiology
- Started beta-brenda
- TSH 1.28
Hypertension, new diagnosis on admission
-Newly on Entresto, carvedilol, Lasix for heart failure reduced EF
--Blood pressures 90s- 110s / 70s-80s
- Goal normotension
History of prediabetes�hemoglobin A1c 5.7
- will start Jardiance given heart failure presentation
Progress Note - Mushroom Spawn Maker
Subjective
Date of Service: November 01, 2024
-feels well, no CP, SOB
-a little dizzy when first stood up
Objective
Labs:
11/01/24 03:35
11/01/24 03:35
Labs
Hgb 17.3 g/dL (13.0-18.0) 11/01/24 03:35
Hct 49.4 % (39.0-52.0) 11/01/24 03:35
Plt Count 230 10^3/uL (130-400) 11/01/24 03:35
Sodium 139 mmol/L (135-145) 11/01/24 03:35
Potassium 4.1 mmol/L (3.5-5.1) 11/01/24 03:35
BUN 20 mg/dl (9-20) 11/01/24 03:35
Creatinine 1.0 mg/dL (0.7-1.3) 11/01/24 03:35
Glucose 118 mg/dl (70-99) H 11/01/24 03:35
Troponins
10/30/24
08:05
Troponin I < 0.012
Vital Signs and I&O:
Vital Signs
Temp Pulse Resp BP Pulse Ox
97.7 F 103 18 113/85 98
11/01/24 07:18 11/01/24 08:20 11/01/24 07:18 11/01/24 08:20 11/01/24 07:18
Vital Signs
Temp Pulse Resp BP Pulse Ox
97.7 F 103 18 113/85 98
11/01/24 07:18 11/01/24 08:20 11/01/24 07:18 11/01/24 08:20 11/01/24 07:18
Intake & Output
10/30/24 10/31/24 11/01/24 11/02/24
06:59 06:59 06:59 06:59
Intake Total 480 / 480 540 / 540
Output Total 750 / 750 175 / 175
Balance 480 / 480 -210 / -210 -175 / -175
Physical Exam
Physical Exam
GEN: No distress, awake, Ox3
HEENT: supple, anicteric, mmm
LUNGS: CTA, no wheezes/rales
CV: Reg, S1/S2, no murmur
ABD: soft, BS+, NT/ND
EXT: No edema
NEURO: Gross non-focal
SKIN: No rash
--- NOTE | 2024-11-01 11:47 | CM ---
Addendum entered by Araceli Lee 11/01/24 12:08:
Sent referral to [facility] to see if he will have coverage.
Original Note:
Reviewed chart. Met with Mr.Dr. Chaudhry to review discharge plans. He states prior to admission he resides with his spouse and stepson in a two story home with eight steps to enter. He states he has a full flight of steps to get to bedroom/full
bathroom. He states he has a powder room on the first floor. He states prior to admission he was independent with ambulation and adls. He states he does not have any DME in the home. He states he has a prescription plan and uses [facility].
Telephone call to [facility] Prescription plan, ([phone]) He has not met his deductible yet, so his first co-pay for Entresto would be $363.75 a month until he meets his deductible after that his co-pay would be 20% of the cost of the medication,
approx-$132.55. His Farxiga co-pay would be $736.42 for 90 days. Once he mets his deductible his co-pay would be 20 percent of the cost of medication., approx, $132.55. Once he mets his out of pocket cos $2000.00 his mediations are free. Placed
the one month free coupon of Entresto and Farxiga in his red discharge folder. Reviewed co-pay with him. He is agreeable to the co-pay. Medical work-up in progress. The discharge plan is to return home with his spouse and step son when medically
stable.
--- NOTE | 2024-11-01 11:50 | PTCARENOTE ---
Pt ambulating in halls, reports some mild SOB on exertion.
[2024-11-01] MEDS: LOVENOX SC (17:26)
--- NOTE | 2024-11-01 17:26 | PTCARENOTE ---
Pt refused Lovenox, he has been OOB all day, walking in halls frequently and doesn't feel that he needs it.
[2024-11-01] MEDS: COREG 6.25 MG PO (19:21)
--- NOTE | 2024-11-02 02:27 | DOWNTIME ---
There was a [employer] Client Retail Seasonal Specialist Downtime on 11/02/2024 from 0100 to 11/02/2024 at 0215. Downtime documentation of patient's care, including medication administrations, has been reconciled in the electronic record per guidelines. Refer to the
patient's paper chart under the miscellaneous tab to see printed paper medication records and downtime forms.
--- NOTE | 2024-11-02 02:45 | PTCARENOTE ---
Tele monitor remains SR w/ PACs/PVCs. HR in the 80-110's at rest. Denies any palpitations or chest discomfort. Patient ambulates in the halls and reports 'I get winded after 1-2 laps'. Denies any dizziness. Pulse ox sating 94-96% RA. Lungs clear
throughout. Right radial & right brachial sites ECMO SPECIALIST. Palpable pulses throughout. Call [place] in reach.
[2024-11-02 04:26] VITALS: BP 106/80; BMI 26.8
[2024-11-02 04:47] LABS: Hematocrit 53.1 % (39.0-52.0); Hemoglobin 18.3 g/dL (13.0-18.0); Mean Corp Hgb Conc. 34.5 g/dL (33.0-37.0); Mean Corpuscular Volume 91.9 fL (80.0-94.0); Platelet Count 232 10^3/uL (130-400); Red Cell Dist. Width 12.5 % (11.5-14.5)
[2024-11-02 05:11] LABS: Blood Urea Nitrogen 27 mg/dl (9-20); Calcium 9.7 mg/dl (8.4-10.2); Carbon Dioxide 25 mmol/L (22-30); Chloride 106 mmol/L (98-107); Estimated Creatinine Clearance 39 ml/min; Glucose 110 mg/dl (70-99); Magnesium 2.2 mg/dl (1.6-2.3); Potassium 4.4 mmol/L (3.5-5.1); Sodium 140 mmol/L (135-145); eGFR 53.74
--- NOTE | 2024-11-02 07:21 | W.PN.HOSP.TC ---
Today's Communication/Plan
-
Follow cardiology recs
Plan for Discharge today
Assessment / Plan
Assessment / Plan
Assessment
A 69 y/o male with PMH of Hyperlipidemia, gout, BPH presented to ED with shortness of breath, fatigue, palpitations with elevated HR on his iwatch. IT started 2 weeks ago with syncope at the gym. Last 3 weeks he has been feeling more fatigue, SOB,
palpitations and receiing afib alerts on his smart watch.
Plan
#Pulmonary congestion, elevated BNP, Possible new onset heart failure
- No history of HF
- Move to IVU
- Consult Cardiology
- Monitor JOSIAH
- Watch daily weights
- Dsicontinue IV Lasix 20mg
Obtain Echo:
-Severely reduced left ventricular systolic function with left ventricular ejection fraction 15-20%
-Trileaflet calcified aortic valve without aortic regurgitation. Perhaps mildly stenotic complicated by low gradient/low flow
-Mitral sclerosis with moderate mitral regurgitation
-Mild tricuspid regurgitation; estimated pulmonary artery systolic pressure 25 mmHg assuming a right atrial pressure of 5 mmHg
Compared to outside study echo report 03/24/24, LV ejection fraction was previously estimated 46% with grade 1 diastolic dysfunction and abnormal strain, negative, aortic sclerosis with no AI and no significant tricuspid regurgitation with estimated
pulmonary artery pressure 24 mmHg.
He had cardiac catheterization yesterday for ischemic evaluation
1.Severe LV dysfunction out of proportion to the extent of coronary artery disease
2. Coronary artery disease involving the distal RCA with 65% stenosis. The iFR measured above the ischemic threshold
Follow cardiology recs
-- repeat echocardiogram with strain tomorrow
-- need further ischemic evaluation likely as an outpatient with a Lexiscan PET/CT stress test
-- will start goal-directed medical therapy
-- Start Entresto and titrate--Sacubitril 24mg/Valsartan 26mg BID to resume 11/03
-- Coreg 6.25mg BID
-- May consider eventual Aldactone if blood pressure tolerates. His BP currently 106/80.
-- LifeVest fitting today
-- Repeat echo after at least 3 months of GDMT
Continue Aspirin 81mg QD for 65% stenotic distal RCA
Atorvastatin uptitrated to 40 mg daily and continues on Zetia
LDL 68 withing the goal range
Continue Lasix 20mg QD
Discharge today
-f/u cardiology
#Tachycardia
- ECG - Sinus tachycardia with frequent premature ventricular complexes
- Recent Holter monitor in October with no documented atrial fibrillation
- Up titrate carvedilol to 6.25 mg BID
- Check TSH- 1.28
#Hypertension
-Continue Entresto, Carvedilol for HFrEF, discontinue metoprolol
-IV lasix on hold
-monitor- goal normotension
#Prediabetes
- Hemoglobin A1C 5.7%
- Start Dapagliflozin 10mg PO QD for HF presentation
#?? Pulmonary Emboli
- Pt with SOB, hx of syncope and tachycardia
- Obtain Chest CTA--> No evidence of pulmonary embolism.
- Monitor Vitals and Oxygen
#?? Myocardial ischemia
- Pt with SOB, hx of syncope, tachycardia denies chest pain
- Check troponin- Normal
- ECG- no ST elevations
#Hyperlipidemia
-Continue Atorvastatin, Ezetimibe
#Gout
-Allopurinol
#BPH
-Continue Finasteride
Full Code
DVT prophylaxis: Levonox
Anticipated Discharge: Today
Subjective/Interval History
-
Date of Service: November 02, 2024
He has been walking on the hallway reports slight SOB with exercising, denies during rest. He sits comfortable on his chair. He does not have any chest pain, lightheadedness or dizziness. He still has some palpitations at night not as much as
previously.
Objective Data
-
Labs:
Laboratory Results
11/02/24
04:34
WBC 5.8
Hgb 18.3 H
Hct 53.1 H
Plt Count 232
Sodium 140
Potassium 4.4
Chloride 106
Carbon Dioxide 25
BUN 27 H
Creatinine 1.4 H
Glucose 110 H
Calcium 9.7
Vital Signs:
Vital Signs
Temp Pulse Resp BP Pulse Ox
97.5 F 83 18 106/80 95
11/02/24 04:25 11/02/24 06:00 11/02/24 04:25 11/02/24 04:26 11/02/24 04:26
I&O
11/01/24 11/02/24 11/03/24
06:59 06:59 06:59
Intake Total 540 / 540
Output Total 750 / 750 1800 / 1800
Balance -210 / -210 -1800 / -1800
Review of Systems
-
History Source: Patient
Constitutional: Reports No Symptoms
EENT: Reports No Symptoms Reported
Respiratory: Reports Trouble Breathing (slight SOB with exercise)
Cardiac: Reports Palpitations
Abdomen/GI: Reports No Symptoms
Breast: Reports No Symptoms
Genitourinary: Reports No Symptoms
Musculoskeletal: Reports No Symptoms
Skin: Reports No Symptoms
Neuro: Reports No Symptoms
Endocrine: Reports No Symptoms
Hematologic / Lymphatic: Reports No Symptoms
Physical Exam
-
General: Well Developed, Well Nourished, No Apparent Distress, Comfortable and Conversant
HEENT: Normocephalic, Atraumatic and Moist Mucous Membranes
Respiratory: Clear to Auscultation
Cardiac: Regular Rhythm, S1/S2 and Murmur
Breast: Deferred by me
GI: Soft, Nontender, Nondistended and Normal Bowel Sounds
Rectal: Deferred by Provider
Genito-urinary: Deferred by me
Musculoskeletal: No Clubbing, No Cyanosis, No Edema and Normal Gait & Station
Skin: Warm and Dry
Neuro: AO x 3
Hematologic / Lymphatic: No Lymphadenopathy
Psych: Calm
[2024-11-02 08:14] VITALS: BP 108/65
[2024-11-02] MEDS: ZETIA 10 MG PO (09:29)
[2024-11-02] MEDS: LIPITOR 40 MG PO (09:29)
[2024-11-02] MEDS: ZYLOPRIM 300 MG PO (09:30)
[2024-11-02] MEDS: COREG 6.25 MG PO (09:30)
[2024-11-02] MEDS: ASPIR LOW (ENTERIC COATED) 81 MG PO (09:30)
[2024-11-02] MEDS: PROSCAR 5 MG PO (09:30)
[2024-11-02] MEDS: ENTRESTO 24 MG/26 MG PO (09:31)
[2024-11-02] MEDS: FARXIGA PO (09:31)
--- NOTE | 2024-11-02 10:04 | PTCARENOTE ---
Assumed care of the pt @0700. Pt is AAOx3 SR w PAC's and PVc's on the monitor. Pt is ambulating the hallways without difficulty denies sob. is at bedside. Call [place] within reach.
--- NOTE | 2024-11-02 10:41 | CM ---
Addendum entered by Araceli Lee 11/02/24 11:43:
Received message from [employer] [facility]est Liaison who states the [employer] Rep. will behere at 12:30 p.m. to fit the Life Vest. Update R.N. and physicians. Also updated Dr. Chaudhry.
Original Note:
Reviewed chart. Met with and Mrs. Chaudhry to review discharge plans. Life Vest has been approved. Awaiting call back from [employer] [facility] regarding date and time for teaching of Life Vest. Prior admission he resides with his spouse and stepson in a
two story home with eight steps to enter. He has a full flight of steps to get to bedroom/full bathroom. He has a powder room on the first floor. Prior to admission he was independent with ambulation and adls. He does not have any DME in the
home. He has a prescription plan and uses [facility]. Medical work-up in progress. The discharge plan is to return home with his spouse and step son and [employer] Life Vest when medically stable.
--- NOTE | 2024-11-02 10:53 | W.PN.CARDCBS ---
Addendum entered and electronically signed by Black Stahl MD 11/02/24 11:38:
I saw and examined the patient.
The DOCUMENTATION CONSULTANT or PA's note was reviewed and I agree with the note.
Comment: General: Well developed, well nourished in NAD.
Neck: Supple, no JVD, HJR, carotids +2 B/L, no bruits bilaterally.
Heart: Non displaced PMI, RRR, no murmurs, No S3, S4, no rubs.
Lungs: Scattered rhonchi
Extremities: No clubbing, cyanosis or edema bilaterally.
Neuro: Grossly nonfocal, awake, alert and oriented x3.
Stable cardiology status. Await possible clearance for LifeVest. Possible discharge later today although renal insufficiency has worsened with creatinine of 1.4. Hold Entresto and Farxiga today restart in AM. He will need outpatient renal
profile.
Original Note:
Today's Communication / Plan
-
lasix 20mg daily
coreg 6.25mg BID
entresto 24/26mg BID to resume 11/03
farxiga 10mg daily
asa 81mg daily
zetia 10mg daily
lipitor 40mg daily
lifevest fitting today
BMP/proBNP on Tuesday 11/07
OP cardiac follow up arranged
plan for DC today
Impression / Plan
-
Initial consult: Dr. Simpson
Impression:
Shortness of breath/elevated proBNP with history of mildly reduced LV systolic function on recent outside hospital echocardiogram and diastolic dysfunction consistent with heart failure with reduced ejection fraction
Frequent PACs and PVCs
Sinus tachycardia
Hypertension, new diagnosis
Hyperlipidemia. Lipid profile 01/06/2024: Total cholesterol 162, HDL 58, triglycerides 167, LDL 77
History of syncope
Prediabetes with hemoglobin A1c 6.2% January 21, 2024
History of gout
previous Echocardiogram reviewed on patient's portal ([place]) with EF 46%, grade 1 diastolic dysfunction and reduced strain with mild to moderate MR.
Echocardiogram with strain 10/31/2024: EF 15-20%
Left heart cath 10/31/2024: LAD minor irregularities. Circumflex 50% mid stenosis. RCA distal 65% eccentric stenosis, PDA and posterior lateral branches widely patent, IFR serially measures above the ischemic threshold at 1.0, 0.99, 1.0, and 0.99.
RA 5, PA 32/19, PCWP 22, CO/CI 3.7/2.1
Plan:
- Patient presented with shortness of breath and noted to have acute CHF
- Echocardiogram on 10/31 showed cardiomyopathy with EF 15 to 20%
- Left heart cath with nonobstructive CAD, cardiomyopathy felt to be nonischemic. continue med mgmt of 50% mid circumflex stenosis, 65% distal RCA stenosis, IFR negative. Continue aspirin, Lipitor 40 mg daily and Zetia
- Was diuresed with good response. He is feeling well and is eager for discharge. Creatinine up to 1.4 today. Holding further IV Lasix. Will plan to transition to 20 mg p.o. Lasix starting 11/03.
- Also held Entresto and Farxiga this morning. Would plan to resume in a.m.
- Remains in sinus rhythm with PVCs on review of telemetry overnight, no NSVT noted. Continue Coreg, started this admission. Spironolactone unable to be added due to current JO and relative hypotension, consider as outpatient
- BMP and proBNP to be rechecked on Tuesday 11/07
- Being arranged for LifeVest
- Will need repeat echo in 3 months to reassess EF
- Outpatient cardiac follow-up arranged
- We discussed activity restrictions/limitations as well as importance of daily weights upon discharge. He reports he is going to [place] in several weeks for his anniversary.
- Discussed with nursing, case management. Discussed with patient and at bedside
Progress Note - Obstetrics And Gynecology Professor
Subjective
Date of Service: November 02, 2024
Feeling well. Eager for discharge
Objective
Labs:
11/02/24 04:34
11/02/24 04:34
Labs
Hgb 18.3 g/dL (13.0-18.0) H 11/02/24 04:34
Hct 53.1 % (39.0-52.0) H 11/02/24 04:34
Plt Count 232 10^3/uL (130-400) 11/02/24 04:34
Sodium 140 mmol/L (135-145) 11/02/24 04:34
Potassium 4.4 mmol/L (3.5-5.1) 11/02/24 04:34
BUN 27 mg/dl (9-20) H 11/02/24 04:34
Creatinine 1.4 mg/dL (0.7-1.3) H 11/02/24 04:34
Glucose 110 mg/dl (70-99) H 11/02/24 04:34
Vital Signs and I&O:
Vital Signs
Temp Pulse Resp BP Pulse Ox
97.4 F 102 20 108/65 94
11/02/24 08:13 11/02/24 09:00 11/02/24 08:13 11/02/24 08:14 11/02/24 10:04
Vital Signs
Temp Pulse Resp BP Pulse Ox
97.4 F 102 20 108/65 94
11/02/24 08:13 11/02/24 09:00 11/02/24 08:13 11/02/24 08:14 11/02/24 10:04
Intake & Output
10/31/24 11/01/24 11/02/24 11/03/24
07:59 07:59 07:59 07:59
Intake Total 480 / 480 540 / 540
Output Total 925 / 925 1625 / 1625
Balance 480 / 480 -385 / -385 -1625 / -1625
Physical Exam
Physical Exam
GEN: No distress, awake, alert, oriented x3
HEENT: supple, anicteric, mmm, EOMI
LUNGS: no audible wheezes
CV: Reg on tele with occasional ectopy
EXT: No cyanosis, clubbing, edema
NEURO: Gross non-focal
SKIN: Warm, pink, dry. No rash
[2024-11-02 11:39] VITALS: BP 110/89
--- NOTE | 2024-11-02 13:21 | W.DCSUMMARY ---
Documented by User: Flakita Bosch MD, Resident 11/02/24 13:48
Discharge Summary
Discharge Data
Date of Admission: 10/30/24
Date of Discharge: 11/02/24
-
Pending Results: No
Hospital Course
Discharging Physician : Dr. Flakita Bosch, Dr. Black Morley
Disposition : Home
Primary care physician : Dr. Metz
Principal Discharge diagnosis : HFrEF
Chronic Discharge diagnosis :
Shortness of breath/elevated proBNP with history of mildly reduced LV systolic function on recent outside hospital echocardiogram and diastolic dysfunction consistent with heart failure with reduced ejection fraction
Frequent PACs and PVCs
Sinus tachycardia
Hypertension, new diagnosis
Hyperlipidemia. Lipid profile 01/06/2024: Total cholesterol 162, HDL 58, triglycerides 167, LDL 77
History of syncope
Prediabetes with hemoglobin A1c 6.2% January 21, 2024
History of gout
Hospital Course :
A 69 y/o male with PMH of Hyperlipidemia, gout, BPH presented to ED on 10/30/2024 with shortness of breath, fatigue and palpitations. On 10/29/2024, while he was resting at home he had SOB, palpitations and checked his smart watch and had an alert
for atrial fibrillation. Last 3 weeks he has been feeling more fatigue, SOB, palpitations and receiving afib alerts on his smart watch. He was given IV lasix responded well. ECHO showed Left ventricular ejection function EF 15-20%. Also, cardiac
catheterization for ischemic evaluation- severe LV dysfunction out of proportion to the extent of coronary artery disease involving the distal RCA with 65% stenosis. Goal directed medical therapy was started for HFrEF. His symptoms improved and
being discharged with [facility].
Follow up with PCP- BMP/proBNP on Tuesday 11/07
Follow up with OP marketing data specialist
Need further ischemic evaluation likely as an outpatient with a Lexiscan PET/CT stress test
Repeat echo after at least 3 months of GDMT
Recommend seeing a OP retail sales clerk regarding high Hemoglobin level
Important imaging findings :
ECHO
-Severely reduced left ventricular systolic function with left ventricular ejection fraction 15-20%
-Trileaflet calcified aortic valve without aortic regurgitation. Perhaps mildly stenotic complicated by low gradient/low flow
-Mitral sclerosis with moderate mitral regurgitation
-Mild tricuspid regurgitation; estimated pulmonary artery systolic pressure 25 mmHg assuming a right atrial pressure of 5 mmHg
Compared to outside study echo report 03/24/24, LV ejection fraction was previously estimated 46% with grade 1 diastolic dysfunction and abnormal strain, negative, aortic sclerosis with no AI and no significant tricuspid regurgitation with estimated
pulmonary artery pressure 24 mmHg.
Chest CTA--> No evidence of pulmonary embolism.
Procedure findings :
Cardiac Catheterization
1.Severe LV dysfunction out of proportion to the extent of coronary artery disease
2. Coronary artery disease involving the distal RCA with 65% stenosis. The iFR measured above the ischemic threshold
Discharge Plan
-
Patient Disposition: Home (Routine Discharge)
Discharge Diagnosis/Procedures: cardiac catheterization, nonischemic cardiomyopathy, CHF
Condition: Fair
Diet: 2 Gram Sodium and Restrict fluids to 48 oz
Activity: As tolerated
Driving Restrictions: As prior to admission
Bathing Restrictions: None
Blood Work: BMP/proBNP in 1 week
Specialty Instructions: Weigh Daily- Call MD for wt gain/loss 3 lbs overnight/5 lbs in 1 week
Instructions: *[facility] Heart Failure Instructions
Stand Alone Forms: DC Instructions- Cath/EP Lab
Referrals:
[facility], [facility] [Other]
PRIVATE,PHYSICIAN [Family Provider, Internal Medicine]
Martine Reid CRNP [Specified Professional Personl, Cardiology] - 11/08/24 3:00 pm
Referral Note: Your previously scheduled appointment 12/09 has been moved up. You have a cardiology follow-up appointment at the [facility] office. Please call with questions
Additional Discharge Medication Instructions: Continue taking Lasix 20mg daily
Continue taking Coreg 6.25 mg twice daily
Resume Entresto 24/26mg twice daily on 11/03/2024
Hold Entresto if SBP <100 mmHg
Monitor BP with Rx Cuff
Continue farxiga 10mg daily
Continue aspirin 81mg daily
Continue Zetia 10 mg daily
Continue Lipitor 40 mg daily
Follow-up with marketing data specialist on 11/08/2024 at 3:00 PM
Follow-up with your PCP within a week
Lab work for BMP/proBNP on Thursday11/07/2024
You will need repeat echo in 3 months to reassess EF
Follow discussion you had with marketing data specialist regarding Activity restrictions/limitations as well as importance of daily weights upon discharge.
Recommend seeing a retail sales clerk regarding high hemoglobin level.
Prescriptions:
New
carvedilol 6.25 mg Tablet
6.25 mg PO BID Qty: 30 0RF
dapagliflozin propanediol 10 mg Tablet
10 mg PO DAILY Qty: 20 0RF
sacubitril-valsartan 24-26 mg Tablet
1 tab PO BID Qty: 15 0RF
furosemide 20 mg Tablet
20 mg PO DAILY Qty: 15 0RF
atorvastatin 40 mg Tablet
40 mg PO DAILY Qty: 15 0RF
(DME) Blood Pressure Cuff Misc
See Rx Instructions .Route Qty: 1 0RF
Rx Instructions:
As directed
Continued
aspirin 81 MG tablet,delayed release (DR/EC)
81 mg PO DAILY
therapeutic multivitamin Tablet
1 tab PO DAILY
allopurinol 300 mg Tablet
300 mg PO DAILY
finasteride 5 mg Tablet
5 mg PO DAILY
Prostate Health 160-100-100 mg-unit-mcg Tablet
2 tab PO DAILY
Prostate Health 160-100-100 mg-unit-mcg Tablet
1 tab PO HS
ezetimibe [Zetia] 10 mg Tablet
10 mg PO DAILY Qty: 0 0RF
Discontinued
atorvastatin [Lipitor] 20 mg Tablet
20 mg PO DAILY
Discharge Orders:
Discharge Patient (As Directed); Ordered 11/02/24
Ordered By: Flakita Bosch
Care Plan Goals
Care Plan Goals:
Problem: Readiness for enhanced knowledge related to diagnosis and treatment plan
Goal: Understand your diagnosis and treatment plan needs, including medications if applicable.
Instructions: Know your diagnosis, underlying causes and treatment plan options, including medications if applicable. Consult with your health care team to learn about your diagnosis and treatment plan, including medications if applicable.
Discharge Date and Time
Discharge Date/Time: 11/02/24 14:50
Print Language: YI

Documented by User: Black Morley DO 11/02/24 18:16
Discharge Summary
Discharge Data
Date of Admission: 10/30/24
Date of Discharge: 11/02/24
Total time spent discharging patient (in min): 35
Discharge Plan
-
Patient Disposition: Home (Routine Discharge)
Discharge Diagnosis/Procedures: cardiac catheterization, nonischemic cardiomyopathy, CHF
Condition: Fair
Diet: 2 Gram Sodium and Restrict fluids to 48 oz
Activity: As tolerated
Driving Restrictions: As prior to admission
Bathing Restrictions: None
Blood Work: BMP/proBNP in 1 week
Specialty Instructions: Weigh Daily- Call MD for wt gain/loss 3 lbs overnight/5 lbs in 1 week
Instructions: *D[facility] Heart Failure Instructions
Stand Alone Forms: DC Instructions- Cath/EP Lab
Referrals:
[facility], [facility] [Other]
PRIVATE,PHYSICIAN [Family Provider, Internal Medicine]
Martine Reid CRNP [Specified Professional Personl, Cardiology] - 11/08/24 3:00 pm
Referral Note: Your previously scheduled appointment 12/09 has been moved up. You have a cardiology follow-up appointment at the [facility] office. Please call with questions
Additional Discharge Medication Instructions: Continue taking Lasix 20mg daily
Continue taking Coreg 6.25 mg twice daily
Resume Entresto 24/26mg twice daily on 11/03/2024
Hold Entresto if SBP <100 mmHg
Monitor BP with Rx Cuff
Continue farxiga 10mg daily
Continue aspirin 81mg daily
Continue Zetia 10 mg daily
Continue Lipitor 40 mg daily
Follow-up with marketing data specialist on 11/08/2024 at 3:00 PM
Follow-up with your PCP within a week
Lab work for BMP/proBNP on Thursday11/07/2024
You will need repeat echo in 3 months to reassess EF
Follow discussion you had with marketing data specialist regarding Activity restrictions/limitations as well as importance of daily weights upon discharge.
Recommend seeing a retail sales clerk regarding high hemoglobin level.
Prescriptions:
New
carvedilol 6.25 mg Tablet
6.25 mg PO BID Qty: 30 0RF
dapagliflozin propanediol 10 mg Tablet
10 mg PO DAILY Qty: 20 0RF
sacubitril-valsartan 24-26 mg Tablet
1 tab PO BID Qty: 15 0RF
furosemide 20 mg Tablet
20 mg PO DAILY Qty: 15 0RF
atorvastatin 40 mg Tablet
40 mg PO DAILY Qty: 15 0RF
(DME) Blood Pressure Cuff Misc
See Rx Instructions .Route Qty: 1 0RF
Rx Instructions:
As directed
Continued
aspirin 81 MG tablet,delayed release (DR/EC)
81 mg PO DAILY
therapeutic multivitamin Tablet
1 tab PO DAILY
allopurinol 300 mg Tablet
300 mg PO DAILY
finasteride 5 mg Tablet
5 mg PO DAILY
Prostate Health 160-100-100 mg-unit-mcg Tablet
2 tab PO DAILY
Prostate Health 160-100-100 mg-unit-mcg Tablet
1 tab PO HS
ezetimibe [Zetia] 10 mg Tablet
10 mg PO DAILY Qty: 0 0RF
Discontinued
atorvastatin [Lipitor] 20 mg Tablet
20 mg PO DAILY
Discharge Orders:
Discharge Patient (As Directed); Ordered 11/02/24
Ordered By: Flakita Bosch
Care Plan Goals
Care Plan Goals:
Problem: Readiness for enhanced knowledge related to diagnosis and treatment plan
Goal: Understand your diagnosis and treatment plan needs, including medications if applicable.
Instructions: Know your diagnosis, underlying causes and treatment plan options, including medications if applicable. Consult with your health care team to learn about your diagnosis and treatment plan, including medications if applicable.
Discharge Date and Time
Discharge Date/Time: 11/02/24 14:50
Print Language: YI
--- NOTE | 2024-11-02 14:45 | PTCARENOTE ---
Discharge instruction reviewed with pt and both verbalized understanding. [facility] rep here and [facility] placed on pt at discharge. Int and Telemetry dc'd. Personal belongings packed and sent with pt. Discharged by wheelchair accompanied by
staff.
== END 2024-11-02 14:50 | disposition home or self-care (01) | DRG 286 ==
LOC: IVU 12:37
PROVIDERS: Nurse Practitioner; ADMITTING PHYSICIAN Hospitalist; ATTENDING PHYSICIAN Internal Medicine; CONSULT PHYSICIAN Internal Medicine Cardiovascular Disease; EMERGENCY PHYSICIAN Emergency Medicine
PROC: B2151ZZ Fluoroscopy of Left Heart using Low Osmolar Contrast (ICD-10-PCS; 2024-10-31)
PROC: B2111ZZ Fluoroscopy of Multiple Coronary Arteries using Low Osmolar Contrast (ICD-10-PCS; 2024-10-31)
PROC: 4A023N8 Measurement of Cardiac Sampling and Pressure, Bilateral, Percutaneous Approach (ICD-10-PCS; 2024-10-31)
PROC: 4A033BC Measurement of Arterial Pressure, Coronary, Percutaneous Approach (ICD-10-PCS; 2024-10-31)
DX: I11.0 Hypertensive heart disease with heart failure (principal); I50.43 Acute on chronic combined systolic (congestive) and diastolic (congestive) heart failure; I42.8 Other cardiomyopathies; I49.3 Ventricular premature depolarization; R73.03 Prediabetes; N40.0 Benign prostatic hyperplasia without lower urinary tract symptoms; E78.00 Pure hypercholesterolemia, unspecified; I48.91 Unspecified atrial fibrillation; I25.10 Atherosclerotic heart disease of native coronary artery without angina pectoris; I35.8 Other nonrheumatic aortic valve disorders; I05.8 Other rheumatic mitral valve diseases; Z88.1 Allergy status to other antibiotic agents; F17.290 Nicotine dependence, other tobacco product, uncomplicated; Z79.82 Long term (current) use of aspirin; Z79.899 Other long term (current) drug therapy; Z82.3 Family history of stroke; Z82.49 Family history of ischemic heart disease and other diseases of the circulatory system
CPT/HCPCS: 71046; 71275; 80048; 80053; 80061; 83036; 83735; 83880; 84443; 84484; 85025; 85027; 85347; 93005; 93306; 93356; 93460; 93799; 99152; 99153; 99285; C1769; C1894; Q9967

== ENCOUNTER → 2024-11-07 06:55 | Outpatient (REF) | payer MEDICARE, OTHER, SELFPAY ==
[2024-11-07 08:21] LABS: Blood Urea Nitrogen 31 mg/dl (9-20); Calcium 10.1 mg/dl (8.4-10.2); Carbon Dioxide 24 mmol/L (22-30); Chloride 108 mmol/L (98-107); Glucose 135 mg/dl (70-99); Magnesium 2.3 mg/dl (1.6-2.3); Potassium 5.0 mmol/L (3.5-5.1); Sodium 141 mmol/L (135-145); eGFR 53.74
== END ==
LOC: REG 06:55
PROVIDERS: ATTENDING PHYSICIAN Internal Medicine; FAMILY PHYSICIAN Physician Assistant; REFERRING PHYSICIAN Internal Medicine Cardiovascular Disease
DX: I50.22 Chronic systolic (congestive) heart failure (principal); R06.00 Dyspnea, unspecified
CPT/HCPCS: 36415; 80048; 83735; 83880

== ENCOUNTER → 2024-11-30 06:31 | Outpatient (REF) | payer MEDICARE, OTHER, SELFPAY ==
[2024-11-30 07:44] LABS: ALT (SGPT) 51 U/L (0-50); AST (SGOT) 36 U/L (17-59); Albumin 4.7 g/dl (3.5-5.0); Alkaline Phosphatase 75 U/L (38-126); Blood Urea Nitrogen 16 mg/dl (9-20); Calcium 9.2 mg/dl (8.4-10.2); Carbon Dioxide 27 mmol/L (22-30); Chloride 101 mmol/L (98-107); Glucose 129 mg/dl (70-99); Potassium 4.7 mmol/L (3.5-5.1); Sodium 136 mmol/L (135-145); Total Protein 7.5 g/dl (6.3-8.2); eGFR > 60.00
== END ==
LOC: REG 06:31
DX: R79.89 Other specified abnormal findings of blood chemistry (principal); I50.20 Unspecified systolic (congestive) heart failure; E78.5 Hyperlipidemia, unspecified
CPT/HCPCS: 36415; 80053

== ENCOUNTER → 2025-01-24 06:32 | Outpatient (REF) | payer MEDICARE, OTHER, SELFPAY ==
[2025-01-24 07:21] LABS: Hematocrit 48.9 % (39.0-52.0); Hemoglobin 16.8 g/dL (13.0-18.0); Mean Corp Hgb Conc. 34.4 g/dL (33.0-37.0); Mean Corpuscular Volume 96.6 fL (80.0-94.0); Nucleated Red Blood Cells % 0 % (-); Platelet Count 244 10^3/uL (130-400); Red Cell Dist. Width 13.8 % (11.5-14.5)
[2025-01-24 07:59] LABS: ALT (SGPT) 49 U/L (0-50); AST (SGOT) 34 U/L (17-59); Albumin 4.8 g/dl (3.5-5.0); Alkaline Phosphatase 87 U/L (38-126); Blood Urea Nitrogen 23 mg/dl (9-20); Calcium 9.5 mg/dl (8.4-10.2); Carbon Dioxide 29 mmol/L (22-30); Chloride 102 mmol/L (98-107); Glucose 132 mg/dl (70-99); Potassium 4.6 mmol/L (3.5-5.1); Sodium 140 mmol/L (135-145); Total Protein 7.8 g/dl (6.3-8.2); eGFR > 60.00
[2025-01-24 08:26] LABS: PSA, Total - Screen 4.88 ng/ml (0.0-4.0)
[2025-01-24 10:54] LABS: Glycohemoglobin (HgbA1c) 6.3 % (4.0-5.9)
== END ==
LOC: REG 06:32
PROVIDERS: FAMILY PHYSICIAN Family Medicine
DX: Z79.899 Other long term (current) drug therapy (principal); R97.20 Elevated prostate specific antigen [PSA]; Z12.5 Encounter for screening for malignant neoplasm of prostate
CPT/HCPCS: 36415; 80053; 83036; 85025; G0103